=== PATIENT | female | born 1990 ===

== ENCOUNTER 2020-11-17 14:24 | Outpatient (CLI) | payer OTHER ==
[2020-11-17 16:22] VITALS: BP 113/73
[2020-11-17] MEDS ORDERED: FLUCONAZOLE 100 MG TAB PO ONE (16:43)
[2020-11-17] MEDS ORDERED: FLUCONAZOLE 200 MG TAB PO ONE (17:00)
== END 2020-11-17 17:30 | disposition home or self-care (01) ==
LOC: TRG 14:24 → APU 14:25 → TRG 17:30
PROVIDERS: ATTEND Obstetrics & Gynecology
DX: Z34.93 Encounter for supervision of normal pregnancy, unspecified, third trimester (principal); Z3A.38 38 weeks gestation of pregnancy
CPT/HCPCS: 59025